=== PATIENT | male | born 2000 | race Caucasian/White ===

== ENCOUNTER 2020-04-17 02:02 | Emergency (ER) | payer SELFPAY ==
[~2020-04-17] VITALS: Ht 182.9 cm; Wt 81.6 kg
[2020-04-17 02:15] VITALS: BP_SYST 124
[2020-04-17 03:30] LABS: BASOPHILS % (AUTO) 0.2 % (0.0-2.0); HEMATOCRIT 45.2 % (36-54); HEMOGLOBIN 15.3 g/dL (14.0-18.0); LYMPHOCYTES # (AUTO) 0.9 K/uL (1.0-5.5); MEAN CORPUSCULAR HEMOGLOBIN 30 pg (27-31); MEAN CORPUSCULAR HGB CONC 34 % (32-36); MEAN CORPUSCULAR VOLUME 87 fL (79.0-98.0); MONOCYTES # (AUTO) 0.5 K/uL (0.0-1.0); MONOCYTES % (AUTO) 3.3 % (1.7-9.3); NEUTROPHILS # (AUTO) 13.4 K/uL (1.8-7.7); NEUTROPHILS % (AUTO) 90.5 % (40.0-70.0); PLATELET COUNT (AUTO) 199 K/uL (130-430); RED BLOOD CELL COUNT(AUTO) 5.17 MIL/uL (4.2-6.2); RED CELL DISTRIBUTION WIDTH 13.1 % (9.0-15.0); WHITE BLOOD COUNT (AUTO) 14.8 K/uL (4.5-11.0)
[2020-04-17 03:39] LABS: CALCIUM 8.5 mg/dL (8.4-11.0); CREATININE 1.02 mg/dL (0.55-1.30); POTASSIUM 3.3 mmol/L (3.5-5.1)
[2020-04-17 03:44] LABS: ALBUMIN 4.2 g/dL (3.4-4.8); TOTAL BILIRUBIN 0.3 mg/dL (0.0-1.0)
[2020-04-17 03:47] LABS: BARBITURATE, URINE NEGATIVE (NEG <=200); BENZODIAZEPINE, URINE NEGATIVE (NEG <=150); CANNABINOID, URINE POSITIVE (NEG <=50); COCAINE, URINE NEGATIVE (NEG <=150); METHAMPHETAMINES SCREEN,URINE NEGATIVE (NEG <=500); OPIATE, URINE NEGATIVE (NEG <=100); PHENCYCLIDINE SCREEN,URINE NEGATIVE (NEG <=25); UR TRICYCLIC ANTIDEPRESSANTS NEGATIVE (NEG <=300); URINE AMPHETAMINE NEGATIVE (NEG <=500); URINE METHADONE NEGATIVE (NEG <=200); URINE OXYCODONE SCREEN NEGATIVE (NEG <=100); URINE PROPOXYPHENE SCREEN NEGATIVE (NEG <=300)
[2020-04-17 04:55] VITALS: BP_SYST 115
== END 2020-04-17 04:55 | disposition home or self-care (01) ==
LOC: SED 02:02
DX: T40.7X5A Adverse effect of cannabis (derivatives), initial encounter (principal); R06.00 Dyspnea, unspecified; F17.210 Nicotine dependence, cigarettes, uncomplicated; Z71.6 Tobacco abuse counseling; Y92.89 Other specified places as the place of occurrence of the external cause
CPT/HCPCS: 36415; 71045; 80053; 80307; 82550-TC; 84484; 85025; 93005; 99285

== ENCOUNTER 2021-05-25 01:20 | Emergency (ER) | payer MEDICAID, OTHER ==
[~2021-05-25] VITALS: Ht 182.9 cm; Wt 81.6 kg
[2021-05-25 01:40] VITALS: BP_SYST 128
--- NOTE | 2021-05-25 01:45 | NUR ---
Patient to ER bed 3 to gown for evaluation. Side rails up. Report given to Sophie MICHEL.
--- NOTE | 2021-05-25 01:52 | NUR ---
Assumed total care of patient. Patient AAO x4 from home c/o dog bite to left hand pinky finger. Patient appears to have a laceration/avulsion with limited bleeding. Patient denies any pain. Patient reports being bit by the neighbors dog. Patient states he has not received the TDAP within the past 5 years.
--- NOTE | 2021-05-25 02:40 | NUR ---
ER Dr. Moeller at bedside examining patient.
--- NOTE | 2021-05-25 02:44 | NUR ---
Laceration cleaned and irrigated with normal saline and iodine. Patient tolerated well.
--- NOTE | 2021-05-25 03:00 | NUR ---
Patient has a 2 cm laceration to left hand. Dr. sullivan applied sutures using sterile technique. Edges well approximated. Site cleansed with NS. Dressing of gauze applied to site. No bleeding noted. Pt tolerated well.
[2021-05-25] MEDS ORDERED: LIDOCAINE 1%, 20 ML MDV 20 ML ONE (03:26)
[2021-05-25] MEDS ORDERED: AMOXICILLIN/CLAVULANATE POTASSIUM 875 MG TABLET PO ONE (03:30)
[2021-05-25] MEDS ORDERED: AMOX-426 PO (03:55)
--- NOTE | 2021-05-25 04:02 | NUR ---
Patient given written and verbal discharge instructions and verbalizes understanding. ER MD discussed with patient the results and treatment provided. Patient in stable condition. ID arm band removed. Rx of Augmentin given. Patient educated on pain management and to follow up with PMD. Pain Scale 0/10. Opportunity for questions provided and answered. Medication side effect fact sheet provided.
[2021-05-25 04:04] VITALS: BP_SYST 121
== END 2021-05-25 04:04 | disposition home or self-care (01) ==
LOC: SED 01:20
DX: S61.217A Laceration without foreign body of left little finger without damage to nail, initial encounter (principal); Z79.899 Other long term (current) drug therapy; W54.0XXA Bitten by dog, initial encounter; Y93.89 Activity, other specified; Y92.89 Other specified places as the place of occurrence of the external cause; Y99.8 Other external cause status
CPT/HCPCS: 12001; 99283; J2001

== ENCOUNTER 2021-05-27 21:26 | Emergency (ER) | payer OTHER ==
[~2021-05-27] VITALS: Ht 182.9 cm; Wt 81.6 kg
[~2021-05-27 21:26] MED LIST: AMOX-426 PO
[2021-05-27 22:39] VITALS: BP_SYST 129
[2021-05-28 00:45] VITALS: BP_SYST 129
== END 2021-05-28 00:45 | disposition home or self-care (01) ==
LOC: SED 21:26
DX: S61.257D Open bite of left little finger without damage to nail, subsequent encounter (principal); Z79.899 Other long term (current) drug therapy; Z48.00 Encounter for change or removal of nonsurgical wound dressing; W54.0XXD Bitten by dog, subsequent encounter
CPT/HCPCS: 99281